=== PATIENT | male | born 2000 | race Caucasian/White ===

== ENCOUNTER → 2022-11-06 | Outpatient (CLI) | payer OTHER | LOC: M OUTALCOH 13:36 | PROVIDERS: ATTEND Psychiatry & Neurology Psychiatry | DX: Z13.30 Encounter for screening examination for mental health and behavioral disorders, unspecified (principal) ==

== ENCOUNTER 2022-12-04 14:00 | Outpatient (RCR) | payer OTHER | END 2022-12-08 | LOC: M OUTALCOH 14:00 | PROVIDERS: ATTEND Psychiatry & Neurology Psychiatry | DX: F10.10 Alcohol abuse, uncomplicated (principal) ==

== ENCOUNTER → 2023-01-08 | Outpatient (RCR) | payer OTHER | LOC: M OUTALCOH 12-11 16:00 | PROVIDERS: ATTEND Psychiatry & Neurology Psychiatry | DX: F10.10 Alcohol abuse, uncomplicated (principal) ==

== ENCOUNTER 2023-02-20 10:30 | Outpatient (RCR) | payer OTHER | END 2023-03-10 | LOC: M OUTALCOH 10:30 | PROVIDERS: ATTEND Psychiatry & Neurology Psychiatry | DX: F10.10 Alcohol abuse, uncomplicated (principal) ==